=== PATIENT | female | born 1990 | race Caucasian/White ===

== ENCOUNTER → 2020-06-11 18:40 | Outpatient (BNVA) | payer MEDICAID, SELFPAY | PROVIDERS: Visit Provider Nurse Practitioner Family | DX: Z11.59 Encounter for screening for other viral diseases (principal) | CPT/HCPCS: 87635 ==

== ENCOUNTER 2020-10-27 10:17 | Inpatient (IN) | payer SELFPAY ==
[2020-10-27 10:21] VITALS: BP 163/95; PULSE 85; RESP 16; TEMP 36.7; O2SAT 95; BMI 32.9
--- NOTE | 2020-10-27 10:38 | ED_ITS ---
HPI - Psych General: Chief Complaint: Psychiatric Symptoms Stated Complaint: SUICIDAL Time Seen by Provider: 10/27/20 10:20 History of Present Illness: HPI Narrative: Patient is a 30-year-old female that presents with suicidal ideations. Patient states that she is intermittently had these thoughts for many years but over the last several days the stressors at home have increased and today she states it hit a breaking point. Patient states that after her youngest son was born she had depression and was placed on medications at that time however she stopped taking them several years ago. She states that she does not think she would act on any thoughts however 3 days ago she did take a razor blade to her left forearm. She has a roughly 4 cm healing cut to the volar aspect of her left arm. She states that she has her kids to live for but is beginning to think that this is not even enough. She does not have good support at home. She has had an inpatient psychiatric stay in the past when she was 17. She states she just does not know what to do anymore. MD complaint: suicidal ideation Duration: constant History of same: Yes Associated psychiatric symptoms: depression Associated symptoms: Reports depression and suicidal ideation; Deny auditory hallucinations, visual hallucinations or homicidal ideation If self harm: admits thoughts of self harm Review of Systems General: Reports: 10 or more systems reviewed and unremarkable except in HPI and below Const: Denies: fever(s) Eyes: Denies: blurry vision ENMT: Denies: nasal congestion Card: Denies: chest pain, palpitations, syncope or dyspnea on exertion Resp: Denies: dyspnea or productive cough GI: Reports: nausea; Denies: vomiting, diarrhea, constipation, change in stool character or melena : Denies: dysuria or hematuria Musc: Denies: neck pain or back pain Skin/Breast: Denies: rash or new lesions Neuro: Denies: headache(s) or dizziness Psych: Reports: anxiety, depression, hopelessness, loss of interest and suicidal ideation; Denies: visual hallucinations, auditory hallucinations or homicidal ideation Keegan/Lymph: Denies: easy bleeding, petechiae or purpura [facility] ED PFSH: Medical History (Updated 10/27/20 @ 14:34 by Michael Alvarado DO) Asthma Physical Exam Const: COMMON NORMALS: no acute distress, patient oriented x3, alert and well nourished OTHER: Tearful HENMT: COMMON NORMALS: normocephalic, atraumatic, EAC's normal, TM's normal bilaterally and Normal external nose present HEAD & SCALP: normocephalic and atraumatic FACE & SINUS: normal facial exam and face symmetric NOSE: Normal external nose present EXTERNAL AUDITORY CANAL: EAC's normal TYMPANIC MEMBRANE: TM's normal bilaterally MOUTH: Normal oral and palatal mucosa present and moist mucous membranes abnormal Eye: COMMON NORMALS: Equal, round and reactive pupils present PUPIL: Yes Equal, round and reactive pupils present Neck/C-Spine: GENERAL: Yes normal visual inspection Chest: COMMONS NORMALS: normal inspection of the chest Resp: COMMON NORMALS: normal respiratory effort, No retractions, No use of a ccessory muscles and clear to auscultation bilaterally AUSCULTATION: clear to auscultation bilaterally Cardio: COMMON NORMALS: regular rate, regular rhythm, S1 normal heart sound present, S2 normal heart sound present and No murmurs present (Cardio) RATE: regular rate RHYTHM: regular rhythm HEART SOUNDS: S1 normal heart sound present and S2 normal heart sound present GI: COMMON NORMALS: Soft to palpation and No hepatosplenomegaly present INSPECTION: Yes normal to inspection AUSCULTATION: Yes normoactive bowel sounds PALPATION: Yes Soft to palpation and Yes No hepatosplenomegaly present RECTAL EXAM: deferred : COMMON NORMALS: Yes no CVA tenderness BLADDER/KIDNEY EXAM: Yes no CVA tenderness Back/Pelvis: COMMON NORMALS: no CVA tenderness Neuro: COMMON NORMALS: patient oriented x3 and moves all extremities SENSORIUM/ORIENTATION: Yes alert SPEECH: speech normal Psych: COMMON NORMALS: Normal thought process present, cooperative, speech normal and denies homicidal ideation ATTITUDE: Yes calm ACTIVITY/MOTOR BEHAVIOR: Yes Avoids eye contact (attititude/behavior) SPEECH: Yes normal speech MOOD & AFFECT: Yes depressed mood and Yes tearful THOUGHT PROCESS: Normal thought process present THOUGHT CONTENT: Yes Suicidality present INSIGHT: Limited insight present (Psych) JUDGEMENT: Limited judgement present (Psych) Skin: COMMON NORMALS: no rashes or lesions noted GENERAL SKIN EXAM: no rashes or lesions noted MDM - Psych MDM Narrative: Medical decision making narrative: Patient remained stable in ED. Her lab work has come back normal. She is medically cleared for psychiatric admission. Case discussed with Dr. Mahoney and he accepts the patient for admission. Lab Data: Labs: Lab Results 10/27/20 10/27/20 10/27/20 Range/Units 10:56 10:56 11:19 WBC 11.1 H (4.0-10.0) 10^3/ uL RBC 5.31 H (4.1-5.3) 10^6/u L Hgb 13.5 (11.5-15.3) g/dL Hct 43.2 (37.0-47.0) % MCV 81.4 (81-99) fL MCH 25.4 L (28.0-34.0) pg MCHC 31.3 (30.0-36.0) g/dL RDW 14.3 (12.1-15.1) % Plt Count 363 (130-400) 10^3/c mm MPV 9.4 (7.4-10.4) fL Neut % (Auto) 67.7 % Lymph % (Auto) 25.8 % Morehouse % (Auto) 4.4 % Eos % (Auto) 1.3 % Baso % (Auto) 0.6 % Neut # (Auto) 7.54 (1.8-7.7) 10^3/u L Lymph # (Auto) 2.9 (0.8-4.8) 10^3/u L Morehouse # (Auto) 0.5 (0.2-0.9) 10^3/u L Eos # (Auto) 0.1 (0.0-0.8) 10^3/u L Baso # (Auto) 0.1 (0.0-0.1) 10^3/u L Nucleated RBC % (a uto) 0 % Nucleated RBCs # 0.0 /100WBC Sodium 140 (136-145) mmol/L Potassium 3.8 (3.5-5.1) mmol/L Chloride 108 H (98-107) mmol/L Carbon Dioxide 21 L (22-29) mmol/L Anion Gap 14.8 (5-19) BUN 8 (6-20) mg/dL Creatinine 0.6 (0.5-0.9) mg/dL GFR Calculation 118.2 (90-130) mL/min Glucose 96 (65-115) mg/dL Calculated Osmolal ity 288 (285-295) mOsm/k g Calcium 9.6 (8.5-10.5) mg/dL Total Bilirubin 0.4 (0.15-1.2) mg/dL AST 18 (0-32) U/L ALT 15 (0-33) U/L Alkaline Phosphata se 65 (35-105) IU/L Total Protein 7.7 (6.6-8.7) g/dL Albumin 4.5 (3.5-5.2) g/dL Globulin 3.2 (1.3-4.6) g/dL TSH 1.28 (0.27-4.20) uIU/ mL HCG, Qual Negative (Negative) Urine Color (Yellow) Urine Appearance (CLEAR) Urine pH (5-7) Ur Specific Gravit y (1.005-1.030) Urine Protein (Negative) Urine Glucose (UA) (Normal) Urine Ketones (Negative) Urine Blood (Negative) Urine Nitrate (Negative) Urine Bilirubin (Negative) Urine Urobilinogen (Negative) mg/dL Ur Leukocyte Allison ase (Negative) Urine RBC (0-2) /hpf Urine WBC (0-5) /hpf Ur Squamous Epith Cells (0-5) /hpf Amorphous Sediment Urine Bacteria (NONE) /hpf Salicylates < 0.3 L (3-10) mg/dL Urine Opiates Scre en (Negative) ng/mL Acetaminophen < 5.0 L (10-30) ug/mL Ur Barbiturates Sc reen (Negative) ng/mL Ur Phencyclidine S crn (Negative) ng/mL Ur Amphetamines Sc reen (Negative) ng/mL U Benzodiazepines Scrn (Negative) ng/mL Urine Cocaine Scre en (Negative) ng/mL U Marijuana (THC) Screen (Negative) ng/mL Ethyl Alcohol < 10 (0-10) mg/dL 10/27/20 10/27/20 Range/Units 11:19 11:19 WBC (4.0-10.0) 10^3/ uL RBC (4.1-5.3) 10^6/u L Hgb (11.5-15.3) g/dL Hct (37.0-47.0) % MCV (81-99) fL MCH (28.0-34.0) pg MCHC (30.0-36.0) g/dL RDW (12.1-15.1) % Plt Count (130-400) 10^3/c mm MPV (7.4-10.4) fL Neut % (Auto) % Lymph % (Auto) % Morehouse % (Auto) % Eos % (Auto) % Baso % (Auto) % Neut # (Auto) (1.8-7.7) 10^3/u L Lymph # (Auto) (0.8-4.8) 10^3/u L Morehouse # (Auto) (0.2-0.9) 10^3/u L Eos # (Auto) (0.0-0.8) 10^3/u L Baso # (Auto) (0.0-0.1) 10^3/u L Nucleated RBC % (a uto) % Nucleated RBCs # /100WBC Sodium (136-145) mmol/L Potassium (3.5-5.1) mmol/L Chloride (98-107) mmol/L Carbon Dioxide (22-29) mmol/L Anion Gap (5-19) BUN (6-20) mg/dL Creatinine (0.5-0.9) mg/dL GFR Calculation (90-130) mL/min Glucose (65-115) mg/dL Calculated Osmolal ity (285-295) mOsm/k g Calcium (8.5-10.5) mg/dL Total Bilirubin (0.15-1.2) mg/dL AST (0-32) U/L ALT (0-33) U/L Alkaline Phosphata se (35-105) IU/L Total Protein (6.6-8.7) g/dL Albumin (3.5-5.2) g/dL Globulin (1.3-4.6) g/dL TSH (0.27-4.20) uIU/ mL HCG, Qual (Negative) Urine Color Yellow (Yellow) Urine Appearance Cloudy (CLEAR) Urine pH 5 (5-7) Ur Specific Gravit y 1.020 (1.005-1.030) Urine Protein Trace (Negative) Urine Glucose (UA) Norm (Normal) Urine Ketones 1+ H (Negative) Urine Blood 2+ H (Negative) Urine Nitrate Negative (Negative) Urine Bilirubin 1+ H (Negative) Urine Urobilinogen 1 H (Negative) mg/dL Ur Leukocyte Allison ase 2+ H (Negative) Urine RBC 0-4 H (0-2) /hpf Urine WBC 15-25 H (0-5) /hpf Ur Squamous Epith Cells 25-40 H (0-5) /hpf Amorphous Sediment Not Reportable Urine Bacteria 2+ H (NONE) /hpf Salicylates (3-10) mg/dL Urine Opiates Scre en Negative (Negative) ng/mL Acetaminophen (10-30) ug/mL Ur Barbiturates Sc reen Negative (Negative) ng/mL Ur Phencyclidine S crn Negative (Negative) ng/mL Ur Amphetamines Sc reen Negative (Negative) ng/mL U Benzodiazepines Scrn Negative (Negative) ng/mL Urine Cocaine Scre en Negative (Negative) ng/mL U Marijuana (THC) Screen Negative (Negative) ng/mL Ethyl Alcohol (0-10) mg/dL Discharge Plan Discharge Patient Disposition: Admitted As Inpatient Admit Provider: Jasper Mahoney Clinical Impression: Suicidal ideation Condition: Stable Coding Level of Care Code ED Manager Regulatory for Alie Fwd Exam Comprehensive
[2020-10-27] MEDS: LORazepam 0.5 mg Tablet PO (10:45)
[2020-10-27 11:05] LABS: Basophils # 0.1 10^3/uL (0.0-0.1); Basophils % 0.6 %; Eosinophils # 0.1 10^3/uL (0.0-0.8); Eosinophils % 1.3 %; Hematocrit 43.2 % (37.0-47.0); Hemoglobin 13.5 g/dL (11.5-15.3); Lymphocytes # 2.9 10^3/uL (0.8-4.8); Lymphocytes % 25.8 %; Mean Corpuscular HGB Conc 31.3 g/dL (30.0-36.0); Mean Corpuscular Hemoglobin 25.4 pg (28.0-34.0); Mean Corpuscular Volume 81.4 fL (81-99); Mean Platelet Volume 9.4 fL (7.4-10.4); Monocytes # 0.5 10^3/uL (0.2-0.9); Monocytes % 4.4 %; Neutrophils # 7.54 10^3/uL (1.8-7.7); Neutrophils % 67.7 %; Nucleated Red Blood Cells % 0 %; Platelet Count 363 10^3/cmm (130-400); Red Blood Count 5.31 10^6/uL (4.1-5.3); Red Cell Distribution Width 14.3 % (12.1-15.1); White Blood Count 11.1 10^3/uL (4.0-10.0)
[2020-10-27 11:29] LABS: Acetaminophen < 5.0 ug/mL (10-30); Alanine Aminotransferase 15 U/L (0-33); Albumin Level 4.5 g/dL (3.5-5.2); Alcohol Level < 10 mg/dL (0-10); Alkaline Phosphatase 65 IU/L (35-105); Anion Gap 14.8 (5-19); Aspartate Amino Transferase 18 U/L (0-32); Blood Urea Nitrogen 8 mg/dL (6-20); Calcium 9.6 mg/dL (8.5-10.5); Carbon Dioxide 21 mmol/L (22-29); Chloride 108 mmol/L (98-107); Creatinine Clr Calc Pharmacy 136.9796; Globulin 3.2 g/dL (1.3-4.6); Glomerular Filtration Rate 118.2 mL/min (90-130); Glucose 96 mg/dL (65-115); Osmolality Calculated 288 mOsm/kg (285-295); Potassium 3.8 mmol/L (3.5-5.1); Salicylate < 0.3 mg/dL (3-10); Sodium 140 mmol/L (136-145); Thyroid Stimulating Hormone 1.28 uIU/mL (0.27-4.20); Total Bilirubin 0.4 mg/dL (0.15-1.2); Total Protein 7.7 g/dL (6.6-8.7)
[2020-10-27 11:36] LABS: HCG Qualitative Urine. Negative (Negative)
[2020-10-27 12:25] LABS: Add Urine Microscopic? YES; Bilirubin Urine 1+ (Negative); Blood Urine 2+ (Negative); Glucose Urine UA Norm (Normal); Ketones Urine 1+ (Negative); Leukocyte Esterase Urine 2+ (Negative); Nitrate Urine Negative (Negative); Protein Urine Trace (Negative); Urine Appearance Cloudy (CLEAR); Urine Color Yellow (Yellow); Urobilinogen Urine 1 mg/dL (Negative); pH Urine 5 (5-7)
[2020-10-27 12:26] LABS: Bacteria Urine 2+ /hpf; RBC Urine 0-4 /hpf (0-2); Squamous Epithelial Cell Urine 25-40 /hpf (0-5); WBC Urine 15-25 /hpf (0-5)
[2020-10-27 12:34] LABS: Amphetamines Screen Urine Negative (Negative); Barbiturates Screen Urine Negative (Negative); Benzodiazepines Screen Urine Negative (Negative); Cocaine Screen Urine Negative (Negative); Opiate Screen Urine Negative (Negative); PCP Screen Urine Negative (Negative); THC Screen Urine Negative (Negative)
[2020-10-27 14:37] VITALS: BP 142/102; PULSE 76; RESP 18; O2SAT 99
[2020-10-27 15:45] VITALS: BP 129/88; PULSE 82; RESP 18; TEMP 36.7; O2SAT 96
[2020-10-27] MEDS: acetaminophen 325 mg Tablet 650 MG PO (16:53)
[2020-10-27] MEDS: nicotine 2 mg Gum BUCCAL (17:15)
[2020-10-27 21:08] VITALS: BP 156/91; PULSE 82; RESP 18; TEMP 36.8; O2SAT 94
[2020-10-27] MEDS: trazodone 50 mg Tablet PO (21:09)
[2020-10-27] MEDS: hyDROXYzine 25 mg Capsule 50 MG PO (21:09)
--- NOTE | 2020-10-27 21:10 | PC.NURSE ---
patient c/o anxiety and insomnia. 50mg Vistaril po, 50mg Trazosone given.
--- NOTE | 2020-10-28 01:33 | PC.NURSE ---
PM ASSESSMENT PT V/S ARE WNL, HEART AND LUNG SOUNDS ARE NORMAL, PT DENIES PAIN, DENIES SI/HI, DENIES AH/VH. PT IS IN THE DAYROOM WATCHING TELEVISION AND ENJOYING THE COMPANY OF OTHER PATIENTS.
[2020-10-28 06:00] VITALS: BP 101/64; PULSE 66; RESP 15; TEMP 36.7; O2SAT 94
--- NOTE | 2020-10-28 09:16 | P.PN_ITS ---
NPU Therapy Progress Note Therapy Progress Note Date: 10/27/20 Time In: 18:45 Time Out: 19:05 Symptoms Reported: depression Mood: irritable, sad, missing her kids Progress Note: OWNER CONSULTING ENGINEER approached Bautista while she was in her room quietly reading. She presents as tearful and sad and says she misses her kids and she has been thinking that this time is when she would be reading her son his favorite book. She admits to recent SI attempt and was interrupted by her partner. Bautista describes a toxic relationship with her Ex who has not been traditionally supportive of her receiving mental health treatment. This is what led to her stopping her mental health medications, although she is unsure that they did even help her at the time. She mentions her depression escalated after the of her son 5 years ago when she suffered Depression symptoms. She describes a childhood full of chaos, drug use, and her emotional needs were not met. She has sought very little in the way of mental health treatment and only reports 2x of trying therapy. In her childhood she saw a counselor but says her mother did not follow through in helping her make those apts. She did see a counselor very briefly for grief/loss emotions but it does not sound like she was engaged. Intervention: OWNER CONSULTING ENGINEER provided empathy and support. Emotions were identified and reflected back to Bautista. Trauma emotions were discussed. OWNER CONSULTING ENGINEER educated on effectiveness of therapy tx and how to follow up for outpatient care. Bautista listened and seemed open to this education. She was willing to take [facility] card a nd brochure of [facility] services. Reported Goals Before Discharge: talk to her children, states she just wants to go home but knows she needs to be there (hospitalized)
--- NOTE | 2020-10-28 10:28 | PM.NHP ---
Providers/Chief Complaint Admitting Physician: Jasper Mahoney MD Chief Complaint: SUICIDAL HPI NPU History of Present Illness Bautista Ordonez is a 30 year old female who presented to the emergency department with the following report: Chief Complaint: Psychiatric Symptoms Stated Complaint: SUICIDAL Time Seen by Provider: 10/27/20 10:20 History of Present Illness: HPI Narrative: Patient is a 30-year-old female that presents with suicidal ideations. Patient states that she is intermittently had these thoughts for many years but over the last several days the stressors at home have increased and today she states it hit a breaking point. Patient states that after her youngest son was born she had depression and was placed on medications at that time however she stopped taking them several years ago. She states that she does not think she would act on any thoughts however 3 days ago she did take a razor blade to her left forearm. She has a roughly 4 cm healing cut to the volar aspect of her left arm. She states that she has her kids to live for but is beginning to think that this is not even enough. She does not have good support at home. She has had an inpatient psychiatric stay in the past when she was 17. She states she just does not know what to do anymore. complaint: suicidal ideation Duration: constant History of same: Yes Associated psychiatric symptoms: depression Associated symptoms: Reports depression and suicidal ideation; Deny auditory hallucinations, visual hallucinations or homicidal ideation If self harm: admits thoughts of self harm. She was admitted to the neuropsychiatric unit for definitive treatment of those issues. She reported psychiatric treatment back when she was 17 years old after a suicide attempt on pills. She denies any major treatment after that event other than outpatient for short period time. She did reports that she got into treatment about 5 years ago after she had depression with her 5-year-old/nearly 5-year-old son. She reports that a couple days ago bartlett her second suicide attempt support that she had some conflict with her children's father but he was the one the concept and and identified the pain to gotten out of control. She reports that she was by herself and her kids were not there and she really never thought about the impact of her behaviors. She started thinking about how badly gotten and decided she needed to come and get some help. Reports he moved all dangerous things out of the house. She reports one major issue she is having is just not been able to sleep and that absence of sleep is led to irritability but she endorses being tired just not being able to sleep for some reason. She denies knowledge of being a snorer. And she never had a sleep study. She reports that she is also struggled with anxiety. She endorses that she sees Dr. Huff but that she does not know if there is any seizure aspect of this situation. We discussed the risk benefits and alternatives of starting Paxil 20 mg p.o. every morning and she understood and agreed proceed as is documented in his note. Psychiatric history: As above. Substance abuse history: She endorses smoking a pack to a pack and half cigarettes a day, denies alcohol use, denies marijuana or any other illicit drug use. She never had a rehab stay and has never had a DUI. Family history: She endorses some mental health issues in her family, and denies addiction issues in her family. She reports that her brother had similar challenges. No reports of suicide attempts or completions in her family. Developmental history: She was a twin but denied being overly early or any sequela from her mom's , or delivery of her and her sister. She learned to walk and talk and met developmental milestones on time, and denies need for speech therapy, learning support, emotional support or special education classes. Psychosocial history: She reports that her mother and father were together when she was born and stayed together till her father tragically of electrocution in front of his children putting up a CB antenna. She reports that she is the next the youngest of their 5 children with only her twin sister being younger by minutes. Her mother has a son that is her half brother. She reports that her childhood was rough and there was emotional but denied physical or sexual abuse. She reports the highest grade she reached was the not have a and that she has not gotten her GED. She endorsed that she is heterosexual with a normal relationship being 3 and half years. She is never been , and she has 2 children a 7-year-old boy and an almost 5-year-old boy, and she never been in the and has no buddhist believes system. She is worked between 1 and 2-1/2 years at different jobs including a [employer]. She currently lives in a house with her 2 kids. Legal history: Denied. Medical history: Seizure history. Meds NPU Home Medications Medication Instructions Recorded Confirmed Last Taken Type albuterol sulfate 90 mcg/actuation 2 puff INHALATION Q6H PRN 06/11/20 10/27/20 Unknown History aerosol inhaler ibuprofen 200 mg PO TID PRN 10/27/20 10/27/20 10/26/20 History Allergies Allergy/AdvReac Type Severity Reaction Status Date / Time No Known Allergies Allergy Verified 06/11/20 14:57 PFSH NPU PFSH: Medical History (Updated 10/29/20 @ 07:16 by Jasper Mahoney MD) Asthma Mental Status Exam MSE Comments: This is an obese white female in hospital scrubs with adequate grooming and noted eye contact. No abnormal movements except for psychomotor retardation. Cooperative with exam in mild distress. Speech was decreased rate and volume. Mood described as depressed and anxious affect congruent and tearful. Thought process organized. Thought content: Patient denied homicidal ongoing suicidal ideation, there were no delusions reported or noted, she denied any auditory or visual hallucinations. Attention and concentration were intact and memory appeared reliable but none were formally tested. She is alert and oriented x3. Insight and judgment are limited, impulse control is limited. Vitals/I&O/Wt Last Vital Signs Temp 98.1 F 10/28/20 06:00 Pulse 66 10/28/20 06:00 Resp 15 10/28/20 06:00 BP 101/64 10/28/20 06:00 Pulse Ox 94 10/28/20 06:00 Weight last 48 hrs Weight 81.647 kg Data NPU : 10/27/20 10:56 10/27/20 10:56 A&P Assessment and plan (1) Suicidal ideation: Status: Acute (2) Major depressive disorder, recurrent: Status: Acute (3) Anxiety disorder: Status: Acute (4) Insomnia: Status: Acute Additional A&P Information This is a 30-year-old white female with a long history of depression and traumatic events with recent anxiety and insomnia who presents with suicidal thoughts and unable to contract for safety outside the hospital. 1. Continue current medication. Continue as needed trazodone and start Paxil 20 mg p.o. every morning. 2. Continue every 15 minute checks for safety. 3. Encourage individual, group and milieu therapies. Involuntary Hold Information 96 Hour Hold: 96 Hour Involuntary Admission: No Attestations NPU Medical Necessity Statement*: Inpatient hospitalization is medically necessary and the clinically appropriate intervention at this time. We will monitor medications and make changes as indicated. Patient will be in the hospital for over two midnights. Likely length of stay 2-5 days. Coding Level of Care Code Acute Student Counselor for [facility] Fwd Diagnoses Suicidal ideation R45.851 Major depressive disorder, recurrent F33.9 Anxiety disorder F41.9 Insomnia G47.00
[2020-10-28 13:54] VITALS: BP 125/81; PULSE 85; RESP 16; TEMP 37.3; O2SAT 94
[2020-10-28] MEDS: nicotine 2 mg Gum BUCCAL (16:35)
[2020-10-28] MEDS: PARoxetine 20 mg Tablet PO (18:31)
[2020-10-28] MEDS: hyDROXYzine 25 mg Capsule 50 MG PO (20:01)
--- NOTE | 2020-10-28 20:20 | PC.NURSE ---
Patient c/o anxiety can't shut thoughts off . Vistaril 50mg given PO.
[2020-10-28 21:40] VITALS: BP 121/74; PULSE 76; RESP 18; TEMP 36.6; O2SAT 97
--- NOTE | 2020-10-28 21:40 | PC.NURSE ---
Staff took 2200 vitals on patient and patients BP was 139/103. Staff then rechecked patients BP was 121/74.
--- NOTE | 2020-10-28 23:37 | PC.NURSE ---
PM ASSESSMENT V/S ARE WNL, HEART/LUNG SOUNDS ARE NORMAL, PT REPORTS HEADACHE RATED A 2 ON 1-10 PAIN SCALE, DENIED NEED FOR MEDICATION AT THIS TIME. PT REPORTS FEELING ANXIOUS, IS READING IN HER ROOM, AND SAYS I DON'T WANT ANY MORE OF THE TRAZODONE I TOOK LAST NIGHT TO SLEEP, I FELT GROGGY/FOGGY ALL DAY. PT SMILED SHE TALKED ABOUT SPEAKING TO HER CHILDREN TODAY, EXPRESSED REMORSE FOR CUTTING HER ARM, SAYS, I WANT TO GO HOME BUT IM NOT IN CONTROL OF THAT. PT DISCUSSED TAKING PAXIL WITH THE NURSE, SHE WANTED SOME INFORMATION ON THE DRUG, NURSE PROVIDED WRITTEN INFORMATION REGARDING MEDICATION TO PT. PT IS RESTING IN HER ROOM AT THIS TIME.
[2020-10-29 06:00] VITALS: BP 132/75; PULSE 63; RESP 17; TEMP 36.7; O2SAT 93
[2020-10-29] MEDS: PARoxetine 20 mg Tablet PO (08:07)
--- NOTE | 2020-10-29 09:43 | PM.NPN ---
Subjective NPU Subjective: Interval history: Bautista presents today reporting that the Paxil was helpful. She reports that she did not take the trazodone for sleep and she still slept better than she did yesterday and feels better overall. She again focused on missing her children and wanting to get out of there is some is possible did not push for discharge today. We discussed likely discharge in the next 48 hours and that we would meet again tomorrow to discuss the possibility of discharge based on her presentation. Otherwise she reports she is eating fine. Mental Status Exam MSE Comments: This is an obese white female in hospital scrubs with adequate grooming and limited eye contact. No abnormal movements except for psychomotor retardation. Cooperative with exam in less distress. Speech was more normal rate and volume. Mood described as better, affect congruent. Thought process organized. Thought content: Patient denied homicidal ideation and denied suicidal ideation, there were no delusions reported or noted, she denied any auditory or visual hallucinations. Attention and concentration were intact and memory appeared reliable but none were formally tested. She is alert and oriented x3. Insight and judgment are improving, impulse control is limited, but improving. Vitals/I&O/Wt Last Vital Signs Temp 98.1 F 10/29/20 06:00 Pulse 63 10/29/20 06:00 Resp 17 10/29/20 06:00 BP 132/75 10/29/20 06:00 Pulse Ox 93 10/29/20 06:00 Weight last 48 hrs Weight 81.647 kg Data NPU : 10/27/20 10:56 10/27/20 10:56 A&P Additional A&P Information (1) Suicidal ideation: (2) Major depressive disorder, recurrent: (3) Anxiety disorder: (4) Insomnia: Additional A&P Information This is a 30-year-old white female with a long history of depression and traumatic events with recent anxiety and insomnia who presents with suicidal thoughts and unable to contract for safety outside the hospital. 1. Continue current medication. 2. Continue every 15 minute checks for safety. 3. Encourage individual, group and milieu therapies. Involuntary Hold Information 96 Hour Hold: 96 Hour Involuntary Admission: No Attestations NPU Medical Necessity Statement*: Inpatient hospitalization is medically necessary and the clinically appropriate intervention at this time. We will monitor medications and make changes as indicated. Likely length of stay 1-4 days. Coding Level of Care Code Acute Health Outreach Worker for Alie Ibarra
[2020-10-29 14:00] VITALS: BP 116/77; PULSE 98; RESP 16; TEMP 37.1; O2SAT 98
[2020-10-29] MEDS: acetaminophen 325 mg Tablet 650 MG PO (14:47)
[2020-10-29] MEDS: OLANZapine 5 mg ODT PO (18:40)
--- NOTE | 2020-10-29 18:40 | PC.NURSE ---
PRN Zyprexa Zydis Patient requested medication for anxiety. Given 5 mg zyprexa zydis po.
[2020-10-29] MEDS: trazodone 50 mg Tablet PO (19:25)
[2020-10-29 20:58] VITALS: BP 136/94; PULSE 86; RESP 18; TEMP 36.9; O2SAT 97
[2020-10-30 06:00] VITALS: BP 114/70; PULSE 68; RESP 16; TEMP 36.8; O2SAT 91
[2020-10-30] MEDS: PARoxetine 20 mg Tablet PO (08:52)
--- NOTE | 2020-10-30 13:30 | P.DS_ITS ---
Diagnoses at Discharge Discharge Diagnosis (1) Suicidal ideation: Status: Resolved (2) Major depressive disorder, recurrent: Status: Acute (3) Anxiety disorder: Status: Acute (4) Insomnia: Status: Acute Reason for Visit Reason for Visit: SUICIDAL Brief History: History of Present Illness Bautista Ordonez is a 30 year old female who presented to the emergency department with the following report: Chief Complaint: Psychiatric Symptoms Stated Complaint: SUICIDAL Time Seen by Provider: 10/27/20 10:20 History of Present Illness: HPI Narrative: Patient is a 30-year-old female that presents with suicidal ideations. Patient states that she is intermittently had these thoughts for many years but over the last several days the stressors at home have increased and today she states it hit a breaking point. Patient states that after her youngest son was born she had depression and was placed on medications at that time however she stopped taking them several years ago. She states that she does not think she would act on any thoughts however 3 days ago she did take a razor blade to her left forearm. She has a roughly 4 cm healing cut to the volar aspect of her left arm. She states that she has her kids to live for but is beginning to think that this is not even enough. She does not have good support at home. She has had an inpatient psychiatric stay in the past when she was 17. She states she just does not know what to do anymore. MD complaint: suicidal ideation Duration: constant History of same: Yes Associated psychiatric symptoms: depression Associated symptoms: Reports depression and suicidal ideation; Deny auditory hallucinations, visual hallucinations or homicidal ideation If self harm: admits thoughts of self harm. She was admitted to the neuropsychiatric unit for definitive treatment of those issues. She reported psychiatric treatment back when she was 17 years old after a suicide attempt on pills. She denies any major treatment after that event other than outpatient for short period time. She did reports that she got into treatment about 5 years ago after she had depression with her 5-year-old/nearly 5-year-old son. She reports that a couple days ago bartlett her second suicide attempt support that she had some conflict with her children's father but he was the one the concept and and identified the pain to gotten out of control. She reports that she was by herself and her kids were not there and she really never thought about the impact of her behaviors. She started thinking about how badly gotten and decided she needed to come and get some help. Reports he moved all dangerous things out of the house. She reports one major issue she is having is just not been able to sleep and that absence of sleep is led to irritability but she endorses being tired just not being able to sleep for some reason. She denies knowledge of being a snorer. And she never had a sleep study. She reports that she is also struggled with anxiety. She endorses that she sees Dr. Huff but that she does not know if there is any seizure aspect of this situation. We discussed the risk benefits and alternatives of starting Paxil 20 mg p.o. every morning and she understood and agreed proceed as is documented in his note. Psychiatric history: As above. Substance abuse history: She endorses smoking a pack to a pack and half cigarettes a day, denies alcohol use, denies marijuana or any other illicit drug use. She never had a rehab stay and has never had a DUI. Family history: She endorses some mental health issues in her family, and denies addiction issues in her family. She reports that her brother had similar challenges. No reports of suicide attempts or completions in her family. Developmental history: She was a twin but denied being overly early or any sequela from her mom's , or delivery of her and her sister. She learned to walk and talk and met developmental milestones on time, and denies need for speech therapy, learning support, emotional support or special education classes. Psychosocial history: She reports that her mother and father were together when she was born and stayed together till her father tragically of electrocution in front of his children putting up a CB antenna. She reports that she is the next the youngest of their 5 children with only her twin sister being younger by minutes. Her mother has a son that is her half brother. She reports that her childhood was rough and there was emotional but denied physical or sexual abuse. She reports the highest grade she reached was the not have a and that she has not gotten her GED. She endorsed that she is heterosexual with a normal relationship being 3 and half years. She is never been , and she has 2 children a 7-year-old boy and an almost 5-year-old boy, and she never been in the and has no zoroastrianism believes system. She is worked between [employer] and 2-1/2 years at different jobs including a [employer]. She currently lives in a house with her 2 kids. Legal history: Denied. Medical history: Seizure history. Hospital Course Hospital Course She presented to the emergency department with depression, suicidal thinking and poor impulse control with a small laceration on her arm. She was admitted to the neuropsychiatric unit for definitive treatment of those issues. She has significant psychosocial stressors and was not connected to therapy and was not on her medication. She quickly acclimated to the individual, group and milieu therapies provided. She was started on Paxil and showed a significant response. She was able to contract for safety prior to discharge. During the hospitalization, patient had routine laboratory studies which were within normal limits except for few outliers. Additionally there was a general medical evaluation which was also within normal limits and revealed no new acute processes. Discharge Summary: At the time of discharge, patient was absent psychosis or lethality. Mood and anxiety were well managed. Patient endorsed a plan to avoid all drugs of abuse and follow-up with the aftercare recommendations of the treatment team. Patient was evaluated and deemed to be absent credible lethality, and had achieved the maximum benefit from an inpatient hospitalization, so was discharged. Involuntary Hold Information 96 Hour Hold: 96 Hour Involuntary Admission: No Mental Status Exam MSE Comments: This is an obese white female in hospital scrubs with adequate grooming and limited eye contact. No abnormal movements except for mild and resolving psychomotor retardation. Cooperative with exam in no acute distress. Speech was more normal rate and volume. Mood described as better, affect congruent. Thought process organized. Thought content: Patient denied suicidal or homicidal ideation, there were no delusions reported or noted, she denied any auditory or visual hallucinations. Attention and concentration were intact and memory appeared reliable but none were formally tested. She is alert and oriented x3. Insight, judgment and impulse control are improving. Discharge Data Vitals: Last Vital Signs Temp 98.2 F 10/30/20 06:00 Pulse 68 10/30/20 06:00 Resp 16 10/30/20 06:00 BP 114/70 10/30/20 06:00 Pulse Ox 91 10/30/20 06:00 Discharge Plan Discharge Patient Disposition: Home Condition: Stable Prescriptions: New paroxetine HCl 20 mg Tablet 20 mg PO DAILY 30 Days Qty: 30 RF: 1 Continued albuterol sulfate [ProAir HFA] 90 mcg/actuation HFA aerosol inhaler 2 puff INHALATION Q6H PRN (Reason: Shortness Of Breath) RF: 0 ibuprofen 200 mg Tablet 200 mg PO TID PRN (Reason: Pain) RF: 0 Discharge Orders: Discharge Order (Routine); Ordered 10/30/20 Ordered By: Jasper Mahoney Referrals: [facility] [Other] (Keep appointment scheduled for Saturday) [facility] [Outside] (Intake paperwork completed while at the hospital. They will contact you about an appointment once the referral has been processed.) Discharge Diet: Regular Discharge Activity: Resume usual activity Discharge Attestations NPU Time Spent in Discharge Care*: less than 30 min Specific Discharge Activities: Specific discharge activities: educating patient, discussing with housing case manager/social workers/dc planners, documenting/other paperwork and evaluating patient/reviewing data Coding Level of Care Code Acute Psychiatric Aide Instructor for Alie Fwd Diagnoses Suicidal ideation R45.851 Major depressive disorder, recurrent F33.9 Anxiety disorder F41.9 Insomnia G47.00
[2020-10-30 13:55] VITALS: BP 114/70; PULSE 68; RESP 16; TEMP 36.8; O2SAT 91
[2020-10-30 14:00] VITALS: BP 125/79; PULSE 100; RESP 18; TEMP 36.8
== END 2020-10-30 15:30 | disposition home or self-care (01) | DRG 885 ==
LOC: ER 10:41 → NP 14:27
PROVIDERS: Admitting Provider Psychiatry & Neurology Psychiatry; Emergency Provider Emergency Medicine; Visit Provider Psychiatry & Neurology Psychiatry
DX: F33.9 Major depressive disorder, recurrent, unspecified (principal); R45.851 Suicidal ideations; F17.210 Nicotine dependence, cigarettes, uncomplicated; F41.9 Anxiety disorder, unspecified; G47.00 Insomnia, unspecified
CPT/HCPCS: 36415; 80053; 80306; 80307; 81001; 81025; 84443; 85025; 99285

== ENCOUNTER → 2021-05-10 10:29 | Outpatient (BNVA) | payer OTHER, SELFPAY | PROVIDERS: Visit Provider Nurse Practitioner Family | DX: Z20.822 Contact with and (suspected) exposure to COVID-19 (principal) | CPT/HCPCS: 87635 ==

== ENCOUNTER → 2025-05-25 10:41 | Outpatient (BNVA) | payer MEDICAID, SELFPAY | PROVIDERS: Visit Provider Orthopaedic Surgery | DX: M25.562 Pain in left knee (principal); M22.8X2 Other disorders of patella, left knee; Z01.89 Encounter for other specified special examinations | CPT/HCPCS: 73560; 73565 ==